=== PATIENT | female | born 1935 | race Caucasian/White ===

== ENCOUNTER → 2016-11-21 | Outpatient (CLI) | payer MEDICARE, MEDICAID ==
[2016-11-21 11:09] LABS: CHOLESTEROL 198.05 mg/dL (0-200); Direct HDL 48 mg/dL (>40); TRIGLYCERIDES 139 mg/dL (<150)
[2016-11-21 11:23] LABS: DIRECT LDL 128 mg/dL (<100)
== END ==
LOC: OD 08:51
PROVIDERS: ATTEND Internal Medicine Cardiovascular Disease
DX: E78.2 Mixed hyperlipidemia (principal)
CPT/HCPCS: 36415; 80061

== ENCOUNTER → 2017-02-28 | Outpatient (CLI) | payer MEDICARE, MEDICAID ==
--- NOTE | 2017-02-28 19:14 | XCELERA REPORT ---
[address] [address] Transthoracic Echocardiogram Report Name: PUSHPA DIXON Age: 81 yrs Gender: Female : 1935 Patient Status: Outpatient Patient Location: Study Date: 02/28/2017 11:03 AM Height: 63 in Weight: 192 lb BSA: 1.9 m2 Reason For Study: SVT, HTN Ordering Physician: FADI HERNÁNDEZ Performed By: Billie Redmond Interpretation Summary Poor Apical views. Calcified aortic root, not enlarged. Aortic valvular sclerosis with no and mild/mod AR .No MS, no MR, normal LA No LVH, no LV enlargement, Normal LVEF63%, no LV diastolic dysfunction. Probable Inferior wall hypokinesis. RH is normal. MMode/2D Measurements & Calculations RVDd: 2.8 cm LVIDd: 4.2 cm FS: 39.0 % Ao root diam: IVSd: 1.00 cm LVIDs: 2.6 cm EDV(Teich): 80.6 ml 3.5 cm LVPWd: 1.0 cm ESV(Teich): 24.4 ml Ao root area: EF(Teich): 69.8 % 9.5 cm2 LA dimension: 3.0 cm LVOT diam: LVLd ap4: 6.7 cm SV(MOD-sp4): 32.0 ml 1.9 cm EDV(MOD-sp4): LA A2Cs: 20.9 cm2 LVOT area: 48.0 ml LVLs ap4: 5.8 cm 3.0 cm2 ESV(MOD-sp4): 16.0 ml EF(MOD-sp4): 66.7 % LA A4Cs: LA length: 5.2 cm LA Vol Index (BP): LA Volume: 62.7 ml 18.4 cm2 33.0 ml/m2 Doppler Measurements & Calculations MV E max pj: MV P1/2t max pj: Ao V2 max: AI max pj: 46.9 cm/sec 48.9 cm/sec 122.2 cm/sec 357.0 cm/sec MV A max pj: MV P1/2t: 59.1 msec Ao max PG: AI max P.5 cm/sec MVA(P1/2t): 3.7 cm2 6.0 mmHg 51.0 mmHg MV E/A: 0.62 MV dec slope: JESS(V,D): 2.5 cm2 AI dec slope: 153.5 cm/sec2 242.3 cm/sec2 AI P1/2t: 681.4 msec LV V1 max PG: PA V2 max: TR max pj: 4.3 mmHg 82.9 cm/sec 228.0 cm/sec LV V1 max: PA max P.8 mmHg TR max P.9 cm/sec 20.8 mmHg Left Ventricle The left ventricle is normal in size, thickness and function. The left ventricle is normal in size. There is normal left ventricular wall thickness. The left ventricular ejection fraction is normal. Doppler measurements suggest impaired left ventricular relaxation, which is associated with grade I/IV or mild diastolic dysfunction. There is inferior wall moderate hypokinesis. There is no thrombus. Right Ventricle The right ventricle is normal in size, thickness and function. Atria The right atrium is normal. The left atrial size is normal. The interatrial septum is intact with no evidence for an atrial septal defect. Mitral Valve The mitral valve is normal in structure and function. There is no evidence of mitral valve prolapse. There is no mitral valve stenosis. There is no mitral regurgitation noted. Aortic Valve The aortic valve is trileaflet. The aortic valve opens well. The aortic valve is sclerotic and shows some degree of functional abnormality. There is no aortic valvular vegetation. There is no aortic valve stenosis. There is a trace to mild amount of aortic regurgitation. Tricuspid Valve The tricuspid valve is not well visualized, but is grossly normal. There is no tricuspid valve prolapse. There is no tricuspid stenosis. There is a trace or physiologic amount of tricuspid regurgitation. Best estimated RVSP is approximately 24 mm/Hg. Pulmonic Valve The pulmonic valve is not well visualized. Great Vessels The aortic root is normal size. There is aortic root sclerosis/calcification. Effusions Minimal pericardial effusion. I WMSI = 1.19 % Normal = 81 Segments Size X - Cannot 1 - Normal 2 - 3 - Akinetic4 - 1-2 small Interpret Hypokinetic Dyskinetic 3-5 moderate 5 - 6-14 large Aneurysmal 15-16 diffuse : FADI HERNÁNDEZ > Fadi Hernández
== END ==
LOC: SP 10:47
PROVIDERS: ATTEND Internal Medicine Cardiovascular Disease
DX: I47.1 Supraventricular tachycardia (principal); I10 Essential (primary) hypertension
CPT/HCPCS: 93306

== ENCOUNTER 2017-03-09 01:51 | Emergency (ER) | payer MEDICARE, MEDICAID ==
--- NOTE | 2017-03-09 03:36 | ER Document Report ---
ED General - General Chief Complaint: General Weakness Stated Complaint: WEAKNESS Time Seen by Provider: 03/09/17 03:23 Notes: Patient is an 81-year-old female comes emergency department from home for chief complaint of sensation of her heart beating strangely and a tingling sensation over her body. She denies dizziness, chest pain, shortness of breath, fever, nausea or vomiting. She states symptoms first started at 2200 and she still mildly feels them now. She states that she was just seen by her dough mixer helper Dr. Hernández and he increased her carvedilol from 12.5 mg daily to 25 mg daily less than 1 week ago. She also recently had an echocardiogram but she is unsure of the results of these. Only past medical history reported otherwise his hypertension and GERD. Denies smoking, alcohol, recreational drugs, ID, blood clot history. She states she is eating and drinking normally. Her daughter is at bedside. TRAVEL OUTSIDE OF THE [place] IN LAST 30 DAYS: No Past Medical History - General Information source: Patient - Social History Smoking Status: Never Smoker Frequency of alcohol use: None Drug Abuse: None Lives with: Family Family History: Reviewed & Not Pertinent - Past Medical History Cardiac Medical History: Reports: Other - SVT GI Medical History: Reports: Hx Gastroesophageal Reflux Disease - Immunizations Immunizations up to date: Yes Hx Diphtheria, Pertussis, Tetanus Vaccination: Yes Review of Systems - Review of Systems Constitutional: No symptoms reported EENT: No symptoms reported Cardiovascular: See HPI Respiratory: No symptoms reported Gastrointestinal: No symptoms reported Genitourinary: No symptoms reported Female Genitourinary: No symptoms reported Musculoskeletal: No symptoms reported Skin: No symptoms reported Hematologic/Lymphatic: No symptoms reported Neurological/Psychological: See HPI Physical Exam - Vital signs Vitals: Temp Pulse Resp BP Pulse Ox 97.9 F 72 17 155/83 H 100 03/09/17 01:58 03/09/17 01:58 03/09/17 01:58 03/09/17 01:58 03/09/17 01:58 Interpretation: Normal - General General appearance: Appears well, Alert - HEENT Head: Normocephalic, Atraumatic Eyes: Normal Pupils: PERRL - Respiratory Respiratory status: No respiratory distress Chest status: Nontender Breath sounds: Normal. No: Decreased air movement, Wheezing Chest palpation: Normal - Cardiovascular Rhythm: Regular, Bradycardia. No: Tachycardia Heart sounds: Normal auscultation, S1 appreciated, S2 appreciated Murmur: No - Abdominal Inspection: Normal Distension: No distension Bowel sounds: Normal Tenderness: Nontender Organomegaly: No organomegaly - Back Back: Normal, Nontender - Extremities General upper extremity: Normal inspection, Nontender, Normal color, Normal ROM , Normal temperature General lower extremity: Normal inspection, Nontender, Normal color, Normal ROM , Normal temperature, Normal weight bearing. No: Nohemi's sign - Neurological Neuro grossly intact: Yes Cognition: Normal Orientation: AAOx4 [place] Coma Scale Eye Opening: Spontaneous Phuc Coma Scale Verbal: Oriented [place] Coma Scale Motor: Obeys Commands Phuc Coma Scale Total: 15 Speech: Normal Cranial nerves: Normal Cerebellar coordination: Normal Motor strength normal: LUE, RUE, LLE, RLE Sensory: Normal - Psychological Associated symptoms: Normal affect, Normal mood - Skin Skin Temperature: Warm Skin Moisture: Dry Skin Color: Normal Course - Re-evaluation Re-evalutation: Patient is well-appearing on exam. She has sinus bradycardia, clear lungs, soft abdomen, normal neurological exam. No hypotension. No fever. CBC, chemistry unremarkable. Magnesium unremarkable. EKG showing sinus bradycardia. Chest x-ray unremarkable. TSH very minimally elevated. Called and spoke with Dr. Hernández, patient's dough mixer helper. Patient reporting she increased her carvedilol from 12.5 mg to 25 mg. Heart averaging in the 50s. Although this is not concerning the low because of patient's reported symptoms recommendation is to have patient take 18.75 mg daily and follow-up with her dough mixer helper closely in the office. Patient is also instructed to return immediately if she develops chest pain, dizziness, shortness of breath, or any other concerning symptoms. Discussed this with patient and family in detail, they state satisfaction and agreement with plan. - Vital Signs Vital signs: Temp Pulse Resp BP Pulse Ox 97.9 F 72 16 126/64 H 98 03/09/17 01:58 03/09/17 01:58 03/09/17 07:01 03/09/17 07:01 03/09/17 07:01 - Laboratory Result Diagrams: 03/09/17 03:55 03/09/17 03:55 Laboratory results interpreted by me: 03/09/17 03/09/17 03:55 03:55 Glucose 140 H Direct Bilirubin 0.5 H TSH 5.35 H Discharge - Discharge Clinical Impression: Sinus bradycardia Condition: Stable Disposition: HOME, SELF-CARE Additional Instructions: Please take the dose of 18.75 mg of carvedilol starting today, this is 1 and 1/ 2 pill together. Follow-up with her dough mixer helper closely in the office. Return the emergency department for any concerning symptoms including chest pain , shortness of breath, dizziness, or any other concerning symptoms. Referrals: ARRON AMLLORY MD [Primary Care Provider] - Follow up as needed
--- NOTE | 2017-03-09 03:53 | RADIOLOGY REPORT (SQ) ---
EXAM DESCRIPTION: CHEST SINGLE VIEW CLINICAL HISTORY: dyspnea on exertion COMPARISON: None. FINDINGS: Single frontal view of the chest. Cardiomegaly. Tortuosity of the thoracic aorta. Tortuosity of thoracic aorta. No consolidation, pneumothorax, or pleural effusion. No displaced rib fractures identified. Upper abdominal soft tissues are unremarkable. IMPRESSION: 1. No acute pulmonary process identified. Cardiomegaly.
[2017-03-09 04:24] LABS: ABSOLUTE BASOPHILS # (AUTO) 0.1 10^3/uL (0.0-0.2); ABSOLUTE EOSINOPHILS # (AUTO) 0.1 10^3/uL (0.0-0.6); ABSOLUTE MONOCYTES (AUTO) 0.4 10^3/uL (0.1-1.4); ABSOLUTE NEUT (AUTO) 3.2 10^3/uL (1.7-8.2); BASOPHILS % (AUTO) 1.1 % (0-2); EOSINOPHILS % (AUTO) 2.5 % (0-6); HEMATOCRIT 40.2 % (36.0-47.0); HEMOGLOBIN 14.1 g/dL (12.0-15.5); HGB HCT DIFFERENCE 2.1; LYMPHOCYTES % (AUTO) 21.4 % (13-45); MEAN CORPUSCULAR HEMOGLOBIN 32.5 pg (27.0-33.4); MEAN CORPUSCULAR VOLUME 93 fl (80-97); MONOCYTES % (AUTO) 8.6 % (3-13); RED BLOOD COUNT 4.33 10^6/uL (3.72-5.28); RED CELL DISTRIBUTION WIDTH 12.9 % (11.5-14.0); SEGMENTED NEUTROPHILS % (AUTO) 66.4 % (42-78); WHITE BLOOD COUNT 4.9 10^3/uL (4.0-10.5)
[2017-03-09 04:34] LABS: ALANINE AMINOTRANSFERASE 36 U/L (9-52); ALBUMIN 3.9 g/dL (3.5-5.0); ALKALINE PHOSPHATASE 64 U/L (38-126); ANION GAP 12 (5-19); ASPARTATE AMINO TRANSFERASE 26 U/L (14-36); BILIRUBIN,DIRECT 0.5 mg/dL (0.0-0.4); BILIRUBIN,TOTAL 0.6 mg/dL (0.2-1.3); BLOOD UREA NITROGEN 19 mg/dL (7-20); CALCIUM 9.3 mg/dL (8.4-10.2); CARBON DIOXIDE 25 mmol/L (22-30); CHLORIDE 107 mmol/L (98-107); CREATINE KINASE 78 U/L (30-135); CREATININE RESULT 0.77 mg/dL (0.52-1.25); GLUCOSE 140 mg/dL (75-110); MAGNESIUM 2.1 mg/dL (1.6-2.3); POTASSIUM 4.1 mmol/L (3.6-5.0); SODIUM 144.1 mmol/L (137-145); TOTAL PROTEIN 6.4 g/dL (6.3-8.2)
[2017-03-09 04:45] LABS: CREATINE KINASE MB 1.34 ng/mL (<4.55)
[2017-03-09 04:51] LABS: TROPONIN I < 0.012 ng/mL
[2017-03-09 07:07] VITALS: BP 126/64
[2017-03-09 07:21] LABS: FREE T3 4.07 pg/mL (2.77-5.27)
--- NOTE | 2017-03-09 09:19 | EKG REPORT ---
SEVERITY:- BORDERLINE ECG - SINUS RHYTHM LVH BY VOLTAGE : Confirmed by: Jarvis Salmon 09-Mar-2017 09:18:47
== END 2017-03-09 07:30 | disposition home or self-care (01) ==
LOC: ER 01:51
DX: R00.1 Bradycardia, unspecified (principal); R53.1 Weakness; Z79.899 Other long term (current) drug therapy; I10 Essential (primary) hypertension; K21.9 Gastro-esophageal reflux disease without esophagitis
CPT/HCPCS: 36415; 71010; 80053; 82550; 82553; 83735; 84439; 84443; 84481; 84484; 85025; 93005; 93010; 99285

== ENCOUNTER → 2017-05-28 | Outpatient (CLI) | payer MEDICARE, MEDICAID ==
[2017-05-28 10:38] LABS: ANION GAP 8 (5-19); BLOOD UREA NITROGEN 15 mg/dL (7-20); CALCIUM 9.8 mg/dL (8.4-10.2); CARBON DIOXIDE 27 mmol/L (22-30); CHLORIDE 108 mmol/L (98-107); GLUCOSE 119 mg/dL (75-110); SODIUM 142.5 mmol/L (137-145)
[2017-05-28 10:40] LABS: POTASSIUM 4.1 mmol/L (3.6-5.0)
== END ==
LOC: OD 09:12
PROVIDERS: ATTEND Internal Medicine Cardiovascular Disease
DX: I47.1 Supraventricular tachycardia (principal); I10 Essential (primary) hypertension
CPT/HCPCS: 36415; 80048

== ENCOUNTER → 2017-12-02 | Outpatient (CLI) | payer MEDICARE, MEDICAID ==
[2017-12-02 11:06] LABS: ANION GAP 9 (5-19); BLOOD UREA NITROGEN 19 mg/dL (7-20); CALCIUM 9.4 mg/dL (8.4-10.2); CARBON DIOXIDE 27 mmol/L (22-30); CHLORIDE 108 mmol/L (98-107); GLUCOSE 114 mg/dL (75-110); POTASSIUM 4.1 mmol/L (3.6-5.0); SODIUM 143.5 mmol/L (137-145)
== END ==
LOC: OD 09:13
PROVIDERS: ATTEND Internal Medicine Cardiovascular Disease
DX: I10 Essential (primary) hypertension (principal); Z79.899 Other long term (current) drug therapy
CPT/HCPCS: 36415; 80048

== ENCOUNTER → 2017-12-23 | Outpatient (CLI) | payer MEDICARE, MEDICAID ==
[~2017-12-23] MED LIST: REGADENOSON INJ 0.4 MG/5 ML DISP.SYRIN IV ONE
--- NOTE | 2017-12-25 11:08 | RADIOLOGY REPORT ---
STRESS TEST REPORT PATIENT NAME: PUSHPA DIXON ROOM#: DATE OF SERVICE: 12/23/2017 AGE: 82Y ORDER#: [id number] REFERRING MD: STEVAN VERNON M.D. INDICATION: Assessment of coronary artery disease, chest pains. PROCEDURE PERFORMED: REST/STRESS SINGLE ISOTOPE CARDIOLITE SPECT IMAGING WITH IV LEXISCAN STRESS AND GATED SPECT IMAGING CLINICAL HISTORY This 82-year-old female with chest pains and coronary risk factors of hypertension and family history of CA and abnormal EKG. REPORT The patient received IV Lexiscan 0.4 mg infused over 10 seconds. The resting heart rate was 64 bpm and increased 96 bpm at end of infusion. The resting blood pressure was 139/79 and was stable at 142/70 at end of infusion. The patient had symptoms of weak legs but no chest pains, mild dizziness. She had no shortness of breath. The resting 12 lead EKG showed normal sinus rhythm at 64 bpm, nonspecific ST-T changes were seen in the inferior leads and the anterior leads. At the end of the infusion no increased ST depressions were seen. Myocardial perfusion imaging was performed at rest following injection of 13.9 mCi of Cardiolite. Ten seconds into the IV Lexiscan injection the patient was injected with 39.7 mCi of Cardiolite and flushed. Gated post stress tomographic imaging was performed 60 minutes after stress. FINDINGS The overall quality of the study is poor. There was mild uptake in the liver superimposed on the inferior wall of the left ventricle, particularly in the stress images. The left ventricular cavity is noted to be normal in size on both the rest and stress studies. There is no evidence of abnormal transient ischemic dilatation of the left ventricle. The TID ratio is 0.97. The SPECT images showed a small, mild fixed perfusion defect in the apical anteroseptal wall with no reversible ischemia. Gated SPECT imaging showed decreased motion contraction in the apical anteroseptal wall. Left ventricular ejection fraction was calculated to be 62%. IMPRESSION: Myocardial perfusion imaging is abnormal. There is a small area of mild fixed perfusion defect in the apical anteroseptal wall with no reversible ischemia. Overall left ventricular systolic function was normal with EF of 62%, and there was reduced motion contraction in the apical anteroseptal wall suggesting previous injury. INTERPRETING PHYSICIAN: STEVAN VERNON M.D. /: [id number] TT: [id number] ID: [id number] /: [id number] TD: [id number] JOB: [id number] cc:STEVAN VERNON M.D. > GRETTA
== END ==
LOC: RAD 06:16
PROVIDERS: ATTEND Internal Medicine Cardiovascular Disease
DX: R07.9 Chest pain, unspecified (principal)
CPT/HCPCS: 93017; 78452; A9500; J2785; Q9969

== ENCOUNTER → 2018-02-20 | Outpatient (CLI) | payer MEDICARE, MEDICAID ==
[2018-02-20 11:17] LABS: ALANINE AMINOTRANSFERASE 23 U/L (9-52); ALKALINE PHOSPHATASE 62 U/L (38-126); ANION GAP 8 (5-19); ASPARTATE AMINO TRANSFERASE 23 U/L (14-36); BILIRUBIN,DIRECT 0.2 mg/dL (0.0-0.4); BILIRUBIN,TOTAL 0.6 mg/dL (0.2-1.3); BLOOD UREA NITROGEN 20 mg/dL (7-20); CALCIUM 9.7 mg/dL (8.4-10.2); CARBON DIOXIDE 30 mmol/L (22-30); CHLORIDE 104 mmol/L (98-107); CHOLESTEROL 194.68 mg/dL (0-200); GLUCOSE 126 mg/dL (75-110); POTASSIUM 4.3 mmol/L (3.6-5.0); SODIUM 142.3 mmol/L (137-145); TOTAL PROTEIN 6.7 g/dL (6.3-8.2); TRIGLYCERIDES 165 mg/dL (<150)
[2018-02-20 11:28] LABS: DIRECT LDL 129 mg/dL (<100)
== END ==
LOC: OD 09:37
PROVIDERS: ATTEND Internal Medicine Cardiovascular Disease
DX: E78.2 Mixed hyperlipidemia (principal); I10 Essential (primary) hypertension; R94.31 Abnormal electrocardiogram [ECG] [EKG]; R73.01 Impaired fasting glucose; R94.30 Abnormal result of cardiovascular function study, unspecified; Z79.899 Other long term (current) drug therapy
CPT/HCPCS: 36415; 80048; 80061; 80076; 83036; 83525; 84443; 86141

== ENCOUNTER → 2018-04-27 | Outpatient (CLI) | payer MEDICARE, MEDICAID ==
[2018-04-27 11:55] LABS: ALANINE AMINOTRANSFERASE 20 U/L (9-52); ALKALINE PHOSPHATASE 64 U/L (38-126); ANION GAP 8 (5-19); ASPARTATE AMINO TRANSFERASE 26 U/L (14-36); BILIRUBIN,DIRECT 0.2 mg/dL (0.0-0.4); BILIRUBIN,TOTAL 0.4 mg/dL (0.2-1.3); BLOOD UREA NITROGEN 17 mg/dL (7-20); CALCIUM 9.4 mg/dL (8.4-10.2); CARBON DIOXIDE 27 mmol/L (22-30); CHLORIDE 107 mmol/L (98-107); CHOLESTEROL 125.45 mg/dL (0-200); CREATINE KINASE 75 U/L (30-135); GLUCOSE 123 mg/dL (75-110); SODIUM 141.9 mmol/L (137-145); TOTAL PROTEIN 6.6 g/dL (6.3-8.2); TRIGLYCERIDES 112 mg/dL (<150)
[2018-04-27 12:06] LABS: DIRECT LDL 57 mg/dL (<100)
== END ==
LOC: OD 09:52
PROVIDERS: ATTEND Internal Medicine Cardiovascular Disease
DX: E78.2 Mixed hyperlipidemia (principal); I10 Essential (primary) hypertension; Z79.899 Other long term (current) drug therapy; M79.10 Myalgia, unspecified site
CPT/HCPCS: 36415; 80048; 80061; 80076; 82550

== ENCOUNTER → 2018-11-04 | Outpatient (CLI) | payer MEDICARE, MEDICAID ==
[2018-11-04 10:23] LABS: ALANINE AMINOTRANSFERASE 24 U/L (9-52); ALBUMIN 3.9 g/dL (3.5-5.0); ALKALINE PHOSPHATASE 61 U/L (38-126); ANION GAP 5 (5-19); ASPARTATE AMINO TRANSFERASE 25 U/L (14-36); BILIRUBIN,DIRECT 0.2 mg/dL (0.0-0.4); BILIRUBIN,TOTAL 0.5 mg/dL (0.2-1.3); BLOOD UREA NITROGEN 22 mg/dL (7-20); CALCIUM 9.4 mg/dL (8.4-10.2); CARBON DIOXIDE 28 mmol/L (22-30); CHLORIDE 109 mmol/L (98-107); CHOLESTEROL 118.02 mg/dL (0-200); GLUCOSE 112 mg/dL (75-110); POTASSIUM 4.3 mmol/L (3.6-5.0); SODIUM 141.7 mmol/L (137-145); TOTAL PROTEIN 6.5 g/dL (6.3-8.2); TRIGLYCERIDES 135 mg/dL (<150)
[2018-11-04 10:34] LABS: DIRECT LDL 57 mg/dL (<100)
== END ==
LOC: OD 09:08
PROVIDERS: ATTEND Internal Medicine Cardiovascular Disease
DX: I10 Essential (primary) hypertension (principal); E78.2 Mixed hyperlipidemia; Z79.899 Other long term (current) drug therapy
CPT/HCPCS: 36415; 80048; 80061; 80076

== ENCOUNTER → 2019-02-04 | Outpatient (CLI) | payer MEDICARE, MEDICAID ==
[2019-02-04 10:43] LABS: ALBUMIN 4.2 g/dL (3.5-5.0); ALKALINE PHOSPHATASE 57 U/L (38-126); ANION GAP 8 (5-19); ASPARTATE AMINO TRANSFERASE 26 U/L (14-36); BILIRUBIN,DIRECT 0.1 mg/dL (0.0-0.4); BILIRUBIN,TOTAL 0.6 mg/dL (0.2-1.3); BLOOD UREA NITROGEN 21 mg/dL (7-20); CARBON DIOXIDE 29 mmol/L (22-30); CHLORIDE 103 mmol/L (98-107); CHOLESTEROL 136.68 mg/dL (0-200); GLUCOSE 124 mg/dL (75-110); POTASSIUM 4.6 mmol/L (3.6-5.0); TOTAL PROTEIN 7.1 g/dL (6.3-8.2); TRIGLYCERIDES 164 mg/dL (<150)
[2019-02-04 10:53] LABS: DIRECT LDL 62 mg/dL (<100)
[2019-02-04 11:04] LABS: VLDL CHOLESTEROL 32.8 mg/dL (10-31)
== END ==
LOC: OD 09:31
PROVIDERS: ATTEND Internal Medicine Cardiovascular Disease
DX: E78.2 Mixed hyperlipidemia (principal); I10 Essential (primary) hypertension; R73.01 Impaired fasting glucose; Z79.899 Other long term (current) drug therapy
CPT/HCPCS: 36415; 80048; 80061; 80076; 83036

== ENCOUNTER → 2019-05-03 | Outpatient (CLI) | payer MEDICARE, MEDICAID ==
[2019-05-03 11:20] LABS: ALBUMIN 3.8 g/dL (3.5-5.0); ALKALINE PHOSPHATASE 67 U/L (38-126); ANION GAP 8 (5-19); ASPARTATE AMINO TRANSFERASE 24 U/L (14-36); BILIRUBIN,DIRECT 0.2 mg/dL (0.0-0.4); BILIRUBIN,TOTAL 0.4 mg/dL (0.2-1.3); BLOOD UREA NITROGEN 17 mg/dL (7-20); CALCIUM 9.8 mg/dL (8.4-10.2); CARBON DIOXIDE 27 mmol/L (22-30); CHLORIDE 107 mmol/L (98-107); CHOLESTEROL 129.14 mg/dL (0-200); GLUCOSE 130 mg/dL (75-110); POTASSIUM 5.2 mmol/L (3.6-5.0); TOTAL PROTEIN 6.6 g/dL (6.3-8.2); TRIGLYCERIDES 133 mg/dL (<150)
[2019-05-03 11:31] LABS: DIRECT LDL 64 mg/dL (<100)
== END ==
LOC: OD 09:41
PROVIDERS: ATTEND Physician Assistant
DX: E78.2 Mixed hyperlipidemia (principal); I10 Essential (primary) hypertension; Z79.899 Other long term (current) drug therapy
CPT/HCPCS: 36415; 80048; 80061; 80076

== ENCOUNTER → 2019-05-18 | Outpatient (CLI) | payer MEDICARE, MEDICAID ==
[2019-05-18 11:30] LABS: ANION GAP 8 (5-19); BLOOD UREA NITROGEN 17 mg/dL (7-20); CALCIUM 9.6 mg/dL (8.4-10.2); CARBON DIOXIDE 30 mmol/L (22-30); CHLORIDE 104 mmol/L (98-107); GLUCOSE 118 mg/dL (75-110); POTASSIUM 4.3 mmol/L (3.6-5.0)
== END ==
LOC: LAB 10:35
PROVIDERS: ATTEND Internal Medicine Cardiovascular Disease
DX: E87.5 Hyperkalemia (principal)
CPT/HCPCS: 36415; 80048

== ENCOUNTER 2019-12-06 11:28 | Emergency (ER) | payer MEDICARE, MEDICAID ==
--- NOTE | 2019-12-06 12:33 | ER Document Report ---
ED Medical Screen (RME) - General Chief Complaint: Back Pain Stated Complaint: BACK PAIN Time Seen by Provider: 12/06/19 12:30 Mode of Arrival: Wheelchair Information source: Patient, Relative Notes: 84-year-old male presents to ED for complaint of low back pain. She states it goes across to her left buttocks and down her left leg. She states she has had this pain for 3 to 4 months. She states [facility] told her it was sciatica and gave her methocarbamol and she did okay on 5 years and started the but then Friday morning she was not able to get up and walk ar ound. She states she has not been incontinent of urine or stool and she can feel her pelvic area. She states it the pain is just to the point that is so severe that she cannot get up and walk. She is not allowed to take NSAIDs due to her heart condition. She does not smoke drink or use any drugs. We will get blood urine and CT of lumbar spine and she will be seen by another provider. I have greeted and performed a rapid initial assessment of this patient. A comprehensive ED assessment and evaluation of the patient, analysis of test results and completion of medical decision making process will be conducted by an additional ED providers. TRAVEL OUTSIDE OF THE [place] IN LAST 30 DAYS: No - Related Data Allergies/Adverse Reactions: Penicillins Allergy (Verified 12/06/19 12:27) Past Medical History Renal/ Medical History: Denies: Hx Peritoneal Dialysis GI Medical History: Reports: Hx Gastroesophageal Reflux Disease Past Surgical History: Reports: Hx Appendectomy - Immunizations Immunizations up to date: Yes Hx Diphtheria, Pertussis, Tetanus Vaccination: Yes Physical Exam - Vital signs Vitals: Temp Pulse Resp BP Pulse Ox 97.6 F 72 16 137/77 H 99 12/06/19 11:35 12/06/19 11:35 12/06/19 11:35 12/06/19 11:35 12/06/19 11:35 Course - Vital Signs Vital signs: Temp Pulse Resp BP Pulse Ox 97.6 F 72 16 137/77 H 99 12/06/19 11:35 12/06/19 11:35 12/06/19 11:35 12/06/19 11:35 12/06/19 11:35
[2019-12-06] MEDS ORDERED: HYDROCODONE/ACETAMINOPHEN 5-325 MG TABLET PO ONE (12:49)
[2019-12-06 13:23] LABS: ABSOLUTE EOSINOPHILS # (AUTO) 0.1 10^3/uL (0.0-0.6); ABSOLUTE LYMPHOCYTES (AUTO) 1.1 10^3/uL (0.5-4.7); ABSOLUTE MONOCYTES (AUTO) 0.5 10^3/uL (0.1-1.4); ABSOLUTE NEUT (AUTO) 2.3 10^3/uL (1.7-8.2); EOSINOPHILS % (AUTO) 2.4 % (0-6); HEMATOCRIT 44.4 % (36.0-47.0); HEMOGLOBIN 14.7 g/dL (12.0-15.5); LYMPHOCYTES % (AUTO) 28.2 % (13-45); MEAN CORPUSCULAR HEMOGLOBIN 31.2 pg (27.0-33.4); MEAN CORPUSCULAR HGB CONC 33.2 g/dL (32.0-36.0); MEAN CORPUSCULAR VOLUME 94 fl (80-97); MONOCYTES % (AUTO) 11.4 % (3-13); PLATELET COUNT 191 10^3/uL (150-450); RED BLOOD COUNT 4.72 10^6/uL (3.72-5.28); RED CELL DISTRIBUTION WIDTH 13.2 % (11.5-14.0); TOTAL CELLS COUNTED % (AUTO) 100 %
[2019-12-06 13:29] LABS: APPEARANCE,URINE SLIGHTLY-CLOUDY; BILIRUBIN,URINE NEGATIVE (NEGATIVE); COLOR,URINE YELLOW; GLUCOSE, URINE NEGATIVE (NEGATIVE); KETONES,URINE NEGATIVE (NEGATIVE); LEUKOCYTE ESTERASE,URINE SMALL (NEGATIVE); NITRITE,URINE NEGATIVE (NEGATIVE); PROTEIN,URINE NEGATIVE (NEGATIVE); URINE SPECIFIC GRAVITY 1.013; UROBILINOGEN,URINE NEGATIVE mg/dL (<2.0)
--- NOTE | 2019-12-06 13:32 | RADIOLOGY REPORT (SQ) ---
EXAM DESCRIPTION: CT LUMBAR SPINE WITHOUT IMAGES COMPLETED DATE/TIME: 12/06/2019 1:07 pm REASON FOR STUDY: Increasing back pain unable to walk COMPARISON: None. TECHNIQUE: Axial images acquired through the lumbar spine without intravenous contrast. Images revi ewed with lung, soft tissue and bone windows. Reconstructed coronal and sagittal MPR images reviewed . All images stored on PACS. All CT scanners at this facility use dose modulation, iterative reconstruction, and/or weight based d osing when appropriate to reduce radiation dose to as low as reasonably achievable (ALARA). [facility]: Dose Right [facility]: CareDose [facility]: Dose Right [facility]: Teradose 4D [facility]: Adype RADIATION DOSE: mGy. LIMITATIONS: None. FINDINGS: SEGMENTATION: Normal. No transitional anatomy. ALIGNMENT: Normal. VERTEBRAL BODIES: No fractures. No dislocation. No acute findings. DISCS: Multilevel disc space narrowing. Vacuum phenomena present at L3-L4, L4-L5 and L5-S1. There i s a prominent right posterolateral osteophyte at the T11-T12 level resulting in effacement of the the chucky sac possibly cord impingement. There is annular disc bulging at L3-L4 with moderate central sten osis in asymmetric narrowing of the left neural foramina. There is a broad-based disc/osteophyte com plex at L4-L5 with bilateral facet arthropathy. This results in moderate central stenosis and bilate ral foraminal narrowing. PEDICLES, TRANSVERSE PROCESSES: No fractures. No dislocation. No acute findings. FACETS, POSTERIOR ELEMENTS: No fractures. No dislocation. No spinal stenosis. HARDWARE: None in the spine. VISUALIZED RIBS: No fractures. SOFT TISSUES: No significant or acute finding in adjacent soft tissues. OTHER: No other significant finding. IMPRESSION: Multilevel disc degenerative disease as described. Patient may benefit from further lashawn luation with MRI. No evidence of an acute process. TECHNICAL DOCUMENTATION: JOB ID: [id number] Quality ID # [id number]: Final reports with documentation of one or more dose reduction techniques (e.g., Au tomated exposure control, adjustment of the mA and/or kV according to patient size, use of iterative reconstruction technique) 2010 [employer]- All Rights Reserved Reading location - IP/workstation name: [email or web address]
[2019-12-06 13:46] LABS: ALBUMIN 4.3 g/dL (3.5-5.0); ALKALINE PHOSPHATASE 65 U/L (38-126); ANION GAP 7 (5-19); ASPARTATE AMINO TRANSFERASE 21 U/L (14-36); BILIRUBIN,TOTAL 0.5 mg/dL (0.2-1.3); BLOOD UREA NITROGEN 24 mg/dL (7-20); CALCIUM 9.6 mg/dL (8.4-10.2); CARBON DIOXIDE 30 mmol/L (22-30); CHLORIDE 104 mmol/L (98-107); GLUCOSE 121 mg/dL (75-110); POTASSIUM 4.4 mmol/L (3.6-5.0); TOTAL PROTEIN 7.1 g/dL (6.3-8.2)
--- NOTE | 2019-12-06 15:33 | ER Document Report ---
ED Neck/Back Problem - General Chief Complaint: Back Pain Stated Complaint: BACK PAIN Time Seen by Provider: 12/06/19 12:30 Mode of Arrival: Wheelchair Notes: 84-year-old woman presents to the emergency department with a complaint of low back pain with pain radiating into the left lower extremity. She was seen at a local urgent care last week, given Robaxin and a shot of steroids in the office. Patient states that the pain has continued and there is been no improvement. She feels like her left leg is weak. She denies incontinence of urine or stool. She has had a long history of lower back pain in the past. There have been no new falls or injuries associated with her symptoms. She has been having pain fo r greater than 2 weeks. TRAVEL OUTSIDE OF THE [place] IN LAST 30 DAYS: No - Related Data Allergies/Adverse Reactions: Penicillins Allergy (Verified 12/06/19 12:27) Past Medical History - General Information source: Patient, Relative - Social History Smoking Status: Never Smoker Family History: Reviewed & Not Pertinent Renal/ Medical History: Denies: Hx Peritoneal Dialysis GI Medical History: Reports: Hx Gastroesophageal Reflux Disease Past Surgical History: Reports: Hx Appendectomy - Immunizations Immunizations up to date: Yes Hx Diphtheria, Pertussis, Tetanus Vaccination: Yes Review of Systems - Review of Systems Notes: Constitutional: Negative for fever. HENT: Negative for sore throat. Eyes: Negative for visual changes. Cardiovascular: Negative for chest pain. Respiratory: Negative for shortness of breath. Gastrointestinal: Negative for abdominal pain, vomiting or diarrhea. Genitourinary: Negative for dysuria. Musculoskeletal: + Low back pain, + radicular pain left leg. Skin: Negative for rash. Neurological: Negative for headaches, weakness or numbness. 10 point ROS negative except as marked above and in HPI. Physical Exam - Vital signs Vitals: Temp Pulse Resp BP Pulse Ox 97.6 F 72 16 137/77 H 99 12/06/19 11:35 12/06/19 11:35 12/06/19 11:35 12/06/19 11:35 12/06/19 11:35 - Notes Notes: PHYSICAL EXAMINATION: Physical Exam: General: Well-nourished well-developed 84-year-old woman in no acute distress HEENT: NC/AT, pupils equal round and reactive to light, MM moist,nares clear, oropharynx clear, airway patent Neck: supple, no adenopathy, no masses. Good range of motion Lungs: clear, no wheezing, no rales no rhonchi CVS: Regular rate and rhythm no murmur gallop or rub Abdomen: Soft, active, nontender, no masses, no hepatosplenomegaly Back: Tenderness in the lower lumbar region, Ext: No edema, clubbing or cyanosis. Neuro: Alert and responsive, moving all 4 extremities on command, cranial nerves intact, no focal findings Skin: Intact no open lesions, no rash PSYCH: Normal mood, normal affect. Course - Re-evaluation Re-evalutation: 12/06/19 16:09 Patient is doing better she is able to sit up without assistance and states that her pain has improved. She was given dose of hydrocodone in the emergency department. Discussed with the patient and daughter treatment of multilevel degenerative disc disease with possible impingement syndrome causing radicular symptoms in the left leg. She is given prednisone, tramadol, Neurontin and she is continued on the muscle relaxant that she was given by her provider at the urgent care. 12/06/19 16:10 - Vital Signs Vital signs: Temp Pulse Resp BP Pulse Ox 97.6 F 72 16 137/77 H 99 12/06/19 11:35 12/06/19 11:35 12/06/19 11:35 12/06/19 11:35 12/06/19 11:35 - Laboratory Result Diagrams: 12/06/19 12:45 12/06/19 12:45 Laboratory results interpreted by me: 12/06/19 12/06/19 12:45 12:45 BUN 24 H Glucose 121 H Ur Leukocyte Esterase SMALL H Urine Ascorbic Acid 20 H - Diagnostic Test Radiology reviewed: Image reviewed Radiology results interpreted by me: 12/06/19 16:07 CT cervical spine: No fractures, no dislocation and no acute findings. There is multi-level degenerative disc disease with vacuum phenomenon present at L3-L4, L4-L5 and L5-S1. There is a prominent right posterior lateral osteophyte at T11-T12 resulting in effacement of the thecal sac possibly cord impingement. There is annular disc bulging at L3-L4 with a moderate central stenosis in asymmetry narrowing of the left neural foramen. There is a broad-based disc osteophyte complex at L4-L5 bilateral facet arthropathy. The result in moderate central stenosis and bilateral foramen narrowing. Discharge - Discharge Clinical Impression: Multilevel degenerative disc disease, Lumbar back pain with radiculopathy affecting left lower extremity Condition: Good Disposition: HOME, SELF-CARE Instructions: Low Back Pain ([facility]), Sciatica ([facility]) Prescriptions: Tramadol HCl [Ultram 50 mg Tablet] 50 mg PO Q4HP PRN #12 tab PRN Reason: For Pain Prednisone [Deltasone 20 mg Tablet] 1 tab PO BID 5 Days #10 tablet Gabapentin [Neurontin 100 mg Capsule] 100 mg PO Q12 #60 capsule
[2019-12-06 16:40] VITALS: BP 117/90
== END 2019-12-06 16:35 | disposition home or self-care (01) ==
LOC: ER 11:28
DX: M51.17 Intervertebral disc disorders with radiculopathy, lumbosacral region (principal); M51.16 Intervertebral disc disorders with radiculopathy, lumbar region; M48.061 Spinal stenosis, lumbar region without neurogenic claudication; M25.78 Osteophyte, vertebrae; Z88.0 Allergy status to penicillin
CPT/HCPCS: 99284; 36415; 85025; 80053; 81001; 72131; A9270

== ENCOUNTER → 2019-12-24 | Outpatient (CLI) | payer MEDICARE, MEDICAID ==
--- NOTE | 2019-12-24 18:37 | RADIOLOGY REPORT (SQ) ---
MR LOWER EXTREMITY JOINT WITHOUT IV CONTRAST HISTORY: Left hip pain. Evaluate for stress fracture. COMPARISON: None. TECHNIQUE: Multiplanar, multisequence MR imaging of the left hip was performed without the administration of intravenous gadolinium. FINDINGS: No acute fracture or bone marrow contusion is identified in the pelvis. Mild degenerative changes of the bilateral hip joints. The sacroiliac joints and pubic symphysis are preserved. There is abnormally increased T2 signal at the insertion of the left gluteus medius tendon on the greater trochanter, consistent with tendinopathy. There is a small amount of overlying trochanteric bursitis. There is also mild tendinopathy of the bilateral hamstring tendons at their origins. The visualized intrapelvic structures are unremarkable. IMPRESSION: 1. Left gluteus medius tendinopathy with overlying trochanteric bursitis. 2. No acute fracture or bone marrow contusion. 3. Mild bilateral hamstrings tendinopathy without tear.
== END ==
LOC: RAD 12:12
PROVIDERS: ATTEND Family Medicine
DX: M84.352A Stress fracture, left femur, initial encounter for fracture (principal); M70.62 Trochanteric bursitis, left hip

== ENCOUNTER → 2020-03-08 | Outpatient (CLI) | payer MEDICARE, MEDICAID ==
[2020-03-08 10:08] LABS: ALKALINE PHOSPHATASE 61 U/L (38-126); ANION GAP 10 (5-19); ASPARTATE AMINO TRANSFERASE 23 U/L (14-36); BILIRUBIN,DIRECT 0.1 mg/dL (0.0-0.4); BILIRUBIN,TOTAL 0.5 mg/dL (0.2-1.3); BLOOD UREA NITROGEN 23 mg/dL (7-20); CALCIUM 9.7 mg/dL (8.4-10.2); CARBON DIOXIDE 26 mmol/L (22-30); CHLORIDE 105 mmol/L (98-107); CHOLESTEROL 121.33 mg/dL (0-200); GLUCOSE 128 mg/dL (75-110); TOTAL PROTEIN 6.6 g/dL (6.3-8.2); TRIGLYCERIDES 100 mg/dL (<150)
[2020-03-08 10:18] LABS: DIRECT LDL 45 mg/dL (<100)
== END ==
LOC: OD 08:00
PROVIDERS: ATTEND Physician Assistant
DX: E78.2 Mixed hyperlipidemia (principal); I10 Essential (primary) hypertension; Z79.899 Other long term (current) drug therapy
CPT/HCPCS: 36415; 80048; 80061; 80076

== ENCOUNTER → 2020-05-18 | Outpatient (CLI) | payer MEDICARE, MEDICAID ==
[~2020-05-18] MED LIST changes: +AMINOPHYLLINE INJ/PF 250 MG/10 ML SDV IV ONE
--- NOTE | 2020-05-19 12:51 | DRAGON STRESS TEST REPORT ---
INTRAVENOUS LEXISCAN CARDIOLITE STRESS TEST USING SINGLE PHOTON EMMISION COMPUTERIZED TOMOGRAPHIC. DATE OF PROCEDURE: May 18, 2020 INDICATION : Coronary artery disease, previous abnormal stress test. CARDIAC RISK FACTORS: Diabetes, hypertension, dyslipidemia RESTING EKG: Sinus rhythm without any baseline ST-T wave changes STRESS EKG: No significant ST segment changes noted with LexiScan bolus REASON FOR TERMINATION: Protocol. PROCEDURE REPORT: Baseline heart rate 71 beats per minute with blood pressure of 110/49. Patient had no significant complaints. Patient was bolused with Lexiscan 0.4 mg intravenously followed by saline bolus. Heart rate at 2 minutes post bolus 102 with a blood pressure of 99/40. 3 minutes post bolus heart rate 86 with blood pressure of 115/47. No significant EKG changes were noted. Patient had no significant complaints during the procedure or postprocedure. CONCLUSIONS: Normal EKG and hemodynamic response to IV LexiScan. NUCLEAR DATA: At rest the patient was given 12.24 millicuries of technetium 99 sestamibi injected intravenously. As per protocol rest gated SPECT images were obtained. On day of stress test, the patient was given intravenous LexiScan at a dose of 0.4 mg in 5 mL intravenously, followed by flush with normal saline. Subsequently the stress dose of 39.2 millicuries of technetium 99 sestamibi was injected intravenously. As per protocol stress gated images were obtained. NUCLEAR INTERPRETATION: Both raw and processed data were used for interpretation. Visual, qualitative, computer-generated quantitative data was used. There was good myocardial uptake of technetium compound. Motion artifact and soft tissue attenuations were noted. Increased visceral uptake was noted. There was overlap of liver uptake with inferior myocardial perfusion. However no definitive areas of transient perfusion defect noted, No definitive areas of fixed perfusion defect or scars noted. EKG gated imaging showed LV EF at 61%, rest and stress gated EF similar visually. T. I D. ratio was 1.13. Lung heart ratio noted to be within normal limits[0.30]. No significant extracardiac and abnormal radiotracer activities were noted. RV free wall uptake was noted to be WNL. IMPRESSION: Also refer to comments under nuclear interpretation. Also test results needs to be interpreted in the context of pretest probability. 1. No definitive areas of transient perfusion defect noted. Please note that there was overlap of liver uptake with inferior myocardial infarction, therefore clinical correlation is requested. 2. There is no definitive scintigraphic evidence of myocardial infarction/scar. 3. EKG gated imaging shows left ventricular ejection fraction of approx. 61%. 4. Clinical correlation requested as worse disease and or balanced ischemia could be missed. In approximately 10% of the cases Lexiscan may not cause adequate vasodilatory stress. RECOMMENDATIONS: Aggressive risk factor modification and medical management. Further evaluation may be needed if continued symptoms or other high risk indicators are noted on clinical evaluation. Close cardiology follow-up is also recommended. Clinical correlation with echocardiogram derived ejection fraction. Inability to exercise by itself can lead to increased cardiovascular event risks. Consider cardiology consultation and or follow-up if clinically indicated. I am available for cardiology evaluation and consultation if requested by the grades 9 through 12 teacher, unless patient already has a abalone sheller. Dr. Samaria Salmon. MRCP Board certified in cardiology and sleep medicine. Board certified in nuclear cardiology, adult echocardiography. GRETTA
== END ==
LOC: RAD 08:33
PROVIDERS: ATTEND Physician Assistant
DX: R94.30 Abnormal result of cardiovascular function study, unspecified (principal)
CPT/HCPCS: 93017; 78452; A9500; J2785; J0280; Q9969